=== PATIENT | female | born 1995 | race Two or more races ===

== ENCOUNTER 2017-01-07 20:59 | Emergency (ER) | payer MEDICAID ==
[~2017-01-07] VITALS: Ht 154.9 cm; Wt 88.8 kg
[2017-01-07] MEDS ORDERED: ONDANSETRON 2MG/ML, 2ML IVPush ONE (22:00)
[2017-01-07] MEDS ORDERED: ACETAMINOPHEN 500 MG TABLET PO ONE (22:00)
[2017-01-07] MEDS ORDERED: SODIUM CHLORIDE FLUSH 10ML SYR IVF ONE (22:00)
[2017-01-07] MEDS ORDERED: SODIUM CHLORIDE 0.9% 1,000ML IVBOLUS ONE (22:00)
[2017-01-07] MEDS ORDERED: MORPHINE SULFATE 4 MG/ML, 1ML ONE ×2 (22:14→22:55)
[2017-01-07] MEDS ORDERED: ONDANSETRON 2MG/ML, 2ML ONE (22:14)
[2017-01-07] MEDS ORDERED: ACETAMINOPHEN 500 MG TABLET ONE (22:18)
[2017-01-07] MEDS: MORPHINE SULFATE 4 MG/ML, 1ML IVPush PRN ×2 (22:25→22:57)
[2017-01-07 22:51] LABS: ASPARTATE AMINO TRANSFERASE 17 U/L (15-37); BLOOD UREA NITROGEN 9 mg/dL (7-18)
[2017-01-07] MEDS ORDERED: DIPHENHYDRAMINE 50 MG/ML, 1ML ONE (23:22)
[2017-01-07] MEDS ORDERED: DIPHENHYDRAMINE 50 MG/ML, 1ML IVPush ONE (23:30)
[2017-01-08] MEDS ORDERED: SODIUM CHLORIDE 0.9% 1,000ML IVBOLUS ONE (01:30)
[2017-01-08] MEDS ORDERED: OMNIPAQUE 350 MG/ML, 100ML BOTTLE ONE (02:00)
[2017-01-08] MEDS ORDERED: CEFTRIAXONE 250 MG IM ONE (02:30)
[2017-01-08] MEDS ORDERED: AZITHROMYCIN 500 MG TABLET PO ONE (02:30)
[2017-01-08] MEDS ORDERED: KETOROLAC 30 MG/1 ML ONE (02:54)
[2017-01-08] MEDS ORDERED: AZITHROMYCIN 250 MG TABLET ONE (02:54)
[2017-01-08] MEDS ORDERED: CEFTRIAXONE 250 MG ONE (02:54)
[2017-01-08] MEDS ORDERED: KETOROLAC 30 MG/1 ML IVPush ONE (03:00)
[2017-01-08 03:39] VITALS: BP 109/53
== END 2017-01-08 03:42 | disposition home or self-care (01) ==
LOC: ED 23:59
DX: K59.00 Constipation, unspecified (principal)
CPT/HCPCS: 36415; 74177; 76830; 76857; 80053; 81001; 83605; 84703; 85025; 87210; 87491; 87591; 87808; 96361; 96372; 96374; 96375; 96376; 99285; J0696; J1200; J1885; J2405; J7030; Q9967

== ENCOUNTER 2018-02-08 20:53 | Emergency (ER) | payer SELFPAY ==
[~2018-02-08] VITALS: Ht 154.9 cm; Wt 86.6 kg
[2018-02-08] MEDS ORDERED: ALBUTEROL/IPRATROPIUM 2.5MG/0.5MG, 3 ML NPPB SCH (21:30)
[2018-02-08] MEDS ORDERED: SODIUM CHLORIDE 0.9% 1,000ML IVBOLUS ONE (21:30)
[2018-02-08] MEDS ORDERED: KETOROLAC 30 MG/1 ML IVPush ONE (21:30)
[2018-02-08] MEDS ORDERED: ALBUTEROL/IPRATROPIUM 2.5MG/0.5MG, 3 ML ONE (21:32)
[2018-02-08 21:47] LABS: BASOPHILS # (AUTO) 0.03 x10^3/uL (0-0.1); BASOPHILS % (AUTO) 0 % (0-1); EOSINOPHILS # (AUTO) 0.29 x10^3/uL (0-0.4); EOSINOPHILS % (AUTO) 2 % (1-7); LYMPHOCYTES # (AUTO) 1.63 x10^3/uL (1-3.4); LYMPHOCYTES % (AUTO) 9 % (22-44); MD NO; MEAN CORPUSCULAR HEMOGLOBIN 29.2 pg (27.0-34.8); MEAN CORPUSCULAR HGB CONC 33.6 g/dL (32.4-35.8); MEAN CORPUSCULAR VOLUME 86.9 fL (80-100); MEAN PLATELET VOLUME 9.5 fL (7.4-10.4); MONOCYTES % (AUTO) 6 % (2-9); NEUTROPHILS # (AUTO) 14.34 x10^3/uL (1.8-6.8); NEUTROPHILS % (AUTO) 83 % (42-75); PLATELET COUNT 256 x10^3/uL (130-400); RED BLOOD COUNT 5.27 x10^6/uL (3.82-5.3); RED CELL DISTRIBUTION WIDTH 14.3 % (9.6-15.2)
[2018-02-08] MEDS ORDERED: KETOROLAC 30 MG/1 ML ONE (21:50)
[2018-02-08] MEDS ORDERED: MORPHINE SULFATE 4 MG/ML, 1ML ONE ×2 (21:51→23:50)
[2018-02-08] MEDS: MORPHINE SULFATE 4 MG/ML, 1ML IVPush PRN ×2 (21:52→23:51)
[2018-02-08 21:57] LABS: ALANINE AMINOTRANSFERASE 20 U/L (12-78); ALBUMIN 3.9 g/dL (3.4-5.0); ANION GAP 6 mmol/L (5-15); CALCIUM 8.9 mg/dL (8.5-10.1); CHLORIDE 106 mmol/L (98-107); CREATININE 0.74 mg/dL (0.55-1.02)
[2018-02-08 22:01] LABS: ALKALINE PHOSPHATASE 80 U/L (45-117); BILIRUBIN,TOTAL 0.8 mg/dL (0.2-1.0); TOTAL PROTEIN 8.6 g/dL (6.4-8.2)
[2018-02-08 22:04] LABS: MICROSCOPIC INDICATED
[2018-02-08 22:17] LABS: CULTURE INDICATED? NO
[2018-02-09 00:10] LABS: CLUE CELLS NONE SEEN (NONE SEEN); WET PREP WBCS NONE SEEN (FEW)
[2018-02-09] MEDS ORDERED: CEFTRIAXONE 250 MG ONE (00:26)
[2018-02-09] MEDS ORDERED: DOXYCYCLINE 100MG TABLET ONE (00:27)
[2018-02-09] MEDS ORDERED: CEFTRIAXONE 1,000 MG IM ONE (00:30)
[2018-02-09] MEDS ORDERED: DOXYCYCLINE 100MG TABLET PO ONE (00:30)
[2018-02-09 00:37] VITALS: BP 103/54
== END 2018-02-09 00:55 | disposition home or self-care (01) ==
LOC: ED 21:34
DX: N73.9 Female pelvic inflammatory disease, unspecified (principal); R19.7 Diarrhea, unspecified; R11.2 Nausea with vomiting, unspecified; Z88.1 Allergy status to other antibiotic agents; F17.200 Nicotine dependence, unspecified, uncomplicated
CPT/HCPCS: 36415; 71045; 74177; 76830; 80053; 81001; 83690; 84703; 85025; 87210; 87491; 87591; 87808; 94640; 96361; 96372; 96374; 96375; 96376; 99285; J0696; J1885; J7030; J7512; J7620